=== PATIENT | female | born 1955 | race Caucasian/White ===

== ENCOUNTER → 2016-08-31 | Outpatient (CLI) | payer BC ==
[~2016-08-31] MED LIST: ANT25 PO; AZIT250T PO
--- NOTE | 2016-08-31 15:41 | MAMMOGRAPHY REPORT ---
BILATERAL DIGITAL SCREENING MAMMOGRAM WITH CAD: 08/31/2016 CLINICAL HISTORY: Routine screening. TECHNIQUE: Current study was also evaluated with a Computer Aided Detection (CAD) system. Bilatera l CC and MLO views were obtained. COMPARISON: Comparison is made to exams dated: 05/31/2015 mammogram, 08/29/2015 mammogram, 09/09/2014 ma mmogram, 08/24/2013 mammogram, 08/19/2012 mammogram, and 08/15/2011 mammogram - [facility] enter. BREAST COMPOSITION: There are scattered areas of fibroglandular density in both breasts. FINDINGS: No suspicious masses, calcifications, or areas of architectural distortion are noted in e ither breast. There has been no significant interval change compared to prior exams. Bilateral siria gn appearing calcifications are not significantly changed. A biopsy marker clip is again noted in t he right anterior breast. Benign-appearing mass in the left medial breast is stable dating back to at least the 2008 exam. IMPRESSION: ACR BI-RADS CATEGORY 2: BENIGN There is no mammographic evidence of malignancy. A 1 year screening mammogram is recommended. The p atient will receive written notification of the results. Approximately 10% of breast cancers are not detected with mammography. A negative mammographic repor t should not delay biopsy if a clinically suggestive mass is present. Marta Jose M.D. /:08/31/2016 08:34:52 Line Operator: Rebecca NEGRETE)(Carl), [facility] letter sent: Normal 1/2 BI-RADS Code: ACR BI-RADS Category 2: Benign
== END | disposition home or self-care (01) ==
LOC: C.MAMM 07:41
PROVIDERS: ATTEND Obstetrics & Gynecology
DX: Z12.31 Encounter for screening mammogram for malignant neoplasm of breast (principal)